=== PATIENT | female | born 1985 | race Two or more races ===

== ENCOUNTER 2022-03-23 13:30 | Emergency (ER) | payer BC ==
[~2022-03-23] VITALS: Ht 157.5 cm; Wt 57.2 kg
[2022-03-23 13:52] VITALS: BP 128/75
[2022-03-23] MEDS ORDERED: KETOROLAC TROMETHAMINE INJ 30 MG/ML VIAL IM ONE (15:00)
[2022-03-23] MEDS ORDERED: KETOROLAC TROMETHAMINE INJ 30 MG/ML VIAL ONE (15:01)
[2022-03-23] MEDS ORDERED: HYDR-4209 PO ×2 (15:53→17:47)
== END 2022-03-23 16:02 | disposition home or self-care (01) ==
LOC: ER 13:39
DX: S92.531A Displaced fracture of distal phalanx of right lesser toe(s), initial encounter for closed fracture (principal); Z79.899 Other long term (current) drug therapy; W04.XXXA Fall while being carried or supported by other persons, initial encounter; Y93.89 Activity, other specified; Y92.89 Other specified places as the place of occurrence of the external cause; Y99.8 Other external cause status
CPT/HCPCS: 99283; 96372; 73630; J1885; A6403